=== PATIENT | female | born 1955 | race Caucasian/White ===

== ENCOUNTER 2017-07-11 11:58 | Outpatient (CLI) | payer OTHER ==
[2017-07-11 12:31] LABS: BILIRUBIN,URINE NEGATIVE (NEGATIVE); PH,URINE 6.5 PH (5.0-7.5)
[2017-07-11 12:33] LABS: UA CHARGE (STRIP ONLY) YES; UR CULTURE IF IND NOT INDICATED
== END 2017-07-11 11:59 | disposition home or self-care (01) ==
LOC: LAB 11:58
PROVIDERS: ATTEND Internal Medicine
DX: R31.29 Other microscopic hematuria (principal)
CPT/HCPCS: 81001; 81003; 87086